=== PATIENT | male | born 1985 | race African-American/Black ===

== ENCOUNTER 2017-09-20 21:30 | Emergency (ER) | payer OTHER ==
[~2017-09-20] VITALS: Ht 177.8 cm; Wt 73.9 kg
[2017-09-20 22:17] LABS: Basophils # (auto) 0.1 uL; Basophils % (auto) 1.6 % (0.0-2.0); Eosinophils # (auto) 0.2 uL; Eosinophils % (auto) 2.8 % (0.0-7.0); Hematocrit 47.1 % (41.0-53.0); Hemoglobin 16.2 g/dL (13.5-17.5); Lymphocytes # (auto) 3.2 uL; Lymphocytes % (auto) 49.6 % (10.0-50.0); Mean Corpuscular Hemoglobin 29.8 pg (28.0-32.0); Mean Corpuscular Hgb Conc. 34.4 g/dL (32.0-36.0); Mean Corpuscular Volume 86.5 fL (80.0-100.0); Mean Platelet Volume 7.5 fL (6.9-10.8); Monocytes # (auto) 0.7 uL; Neutrophils # (auto) 2.2 uL; Nucleated Red Blood Cells % 0.3 %; Platelet Count (auto) 312 10^3/uL (140-450); Red Cell Distribution Width 13.9 % (11.8-14.3); White Blood Cell 6.4 10^3/uL (4.4-10.8)
[2017-09-20 22:32] LABS: Acetaminophen < 2.0 ug/mL (10-30); Salicylate < 1.7 mg/dL (2.8-20.0)
[2017-09-20 22:36] LABS: Albumin 4.2 g/dL (3.4-5.0); Alkaline Phosphatase 72 U/L (45-117); Anion Gap 10 (5-15); Aspartate Aminotransferase 14 U/L (15-37); BUN/Creatinine Ratio 16.3; Bilirubin, Total 1.8 mg/dL (0.2-1.0); Blood Urea Nitrogen 13 mg/dL (7-18); Calcium 9.1 mg/dL (8.5-10.1); Carbon Dioxide 26 mmol/L (21-32); Chloride 101 mmol/L (98-107); GFR African American 142 mL/min; GFR Non-African American 118 mL/min; Glucose 86 mg/dL (74-106); Potassium 3.3 mmol/L (3.5-5.1); Sodium 137 mmol/L (136-145); Total Protein 8.6 g/dL (6.4-8.2)
[2017-09-20] MEDS ORDERED: ONDANSETRON ODT 4 MG TAB PO ONE (22:45)
[2017-09-21 01:18] LABS: Urine Bilirubin Negative (Negative); Urine Blood Negative /uL (Negative); Urine Color Yellow (Yellow); Urine Glucose Normal (Normal); Urine Ketone 1+ (Negative); Urine Mucus FEW (None Seen); Urine Nitrite Negative (Negative); Urine RBC 2 /hpf (0 - 3); Urine Squamous Epithelial Cell FEW /hpf (<5); Urine Urobilinogen Normal (Negative)
[2017-09-21 04:29] VITALS: BP 126/70
== END 2017-09-21 04:31 | disposition home or self-care (01) ==
LOC: EDUNIT# 21:30 → EDBD 21:30 → ER 21:30
DX: F41.9 Anxiety disorder, unspecified (principal); F32.9 Major depressive disorder, single episode, unspecified; F17.200 Nicotine dependence, unspecified, uncomplicated; F12.10 Cannabis abuse, uncomplicated; F15.10 Other stimulant abuse, uncomplicated
CPT/HCPCS: 36415; 80053; 80307; 80320; 80329; 81001; 85025; 99284; Q0162

== ENCOUNTER 2023-08-09 17:45 | Emergency (ER) | payer MEDICAID, OTHER ==
[~2023-08-09] VITALS: Ht 170.2 cm; Wt 54.5 kg
[2023-08-09 19:17] LABS: Basophils # (auto) 0 10 ^3/uL (0-0.2); Basophils % (auto) 0.1 % (0.0-2.0); Eosinophils # (auto) 0 10 ^3/uL (0-0.8); Eosinophils % (auto) 0.1 % (0.0-7.0); Hematocrit 33.6 % (41.0-53.0); Hemoglobin 11.2 g/dL (13.5-17.5); Lymphocytes # (auto) 0.9 10 ^3/uL (0.4-5.4); Lymphocytes % (auto) 18.7 % (10.0-50.0); Mean Corpuscular Hemoglobin 29.3 pg (28.0-32.0); Mean Corpuscular Hgb Conc. 33.4 g/dL (32.0-36.0); Mean Corpuscular Volume 87.7 fL (80.0-100.0); Monocytes # (auto) 0.4 10 ^3/uL (0-1.3); Monocytes % (auto) 8.8 % (0.0-12.0); Neutrophils # (auto) 3.7 10 ^3/uL (1.6-8.6); Neutrophils % (auto) 72.3 % (37.0-80.0); Nucleated Red Blood Cells % 0.1 %; Red Blood Cells 3.83 10^6/uL (4.5-5.90); Red Cell Distribution Width 14.2 % (11.8-14.3); White Blood Cell 5.1 10^3/uL (4.4-10.8)
[2023-08-09 19:45] LABS: Alanine Aminotransferase 30 U/L (7-40); Albumin 3.9 g/dL (3.2-4.8); Alkaline Phosphatase 91 U/L (46-116); Anion Gap 5 (5-15); Aspartate Aminotransferase 31 U/L (13-40); BUN/Creatinine Ratio 32.3 (10.0-20.0); Bilirubin, Total 1.2 mg/dL (0.2-1.0); Blood Urea Nitrogen 20 mg/dL (9-23); Calcium 9.2 mg/dL (8.7-10.4); Carbon Dioxide 34 mmol/L (20-30); Chloride 99 mmol/L (98-107); Glucose 98 mg/dL (74-106); Potassium 3.6 mmol/L (3.5-5.1); Sodium 138 mmol/L (136-145); Total Protein 7.1 g/dL (5.7-8.2)
[2023-08-09 22:55] LABS: Magnesium 2.1 mg/dL (1.6-2.6)
[2023-08-10] MEDS ORDERED: PANTOPRAZOLE 80 MG in SODIUM CHL 0.9% 100 ML IV ONE ×2
[2023-08-10] MEDS ORDERED: PANTOPRAZOLE 40mg/50ML NS AE 50 ML IV ONE
[2023-08-10 01:29] LABS: INR 1.11 (0.9-1.15); Partial Thromboplastin Time 31.5 SEC (24.5-34.5); Prothrombin Time 11.6 sec (9.3-11.8)
[2023-08-10] MEDS ORDERED: IOHEXOL 350 MG/ML 100ML IJ ONE (03:20)
[2023-08-10 03:55] VITALS: TEMP 97.4
[2023-08-10] MEDS ORDERED: PANTOPRAZOLE 40 MG/10 ML VIAL INJ IV ONE (05:11)
[2023-08-10] MEDS ORDERED: LACTATED RINGER'S 2,000 ML IV ONE (05:30)
[2023-08-10] MEDS ORDERED: metroNIDAZOLE 500MG/100ML 100 ML IV ONE (05:30)
[2023-08-10] MEDS ORDERED: cefTRIAXone 1GM/50ML D5W 50 ML IV ONE (05:30)
[2023-08-10] MEDS ORDERED: LACTATED RINGER'S 1,000 ML IV ONE ×2 (05:30)
[2023-08-10] MEDS ORDERED: LACTULOSE 10g/15ml SOLN 473ML PR ONE (05:30)
[2023-08-10 08:35] VITALS: PULSE 78; O2SAT 97
[2023-08-10] MEDS ORDERED: GOLYTELY 4L KIT PO ONE (13:45)
[2023-08-10] MEDS ORDERED: SENN-105 PO (14:20)
[2023-08-10] MEDS ORDERED: LACT10SO3 PO (14:20)
[2023-08-10] MEDS ORDERED: CIPR500T4 PO (14:21)
[2023-08-10] MEDS ORDERED: BACL20TA PO (14:24)
[2023-08-10] MEDS ORDERED: PANT40TA2 PO (14:25)
[2023-08-10 18:01] VITALS: BP 118/69; PULSE 61; RESP 16; O2SAT 100
== END 2023-08-10 19:28 | disposition home or self-care (01) ==
LOC: ER 17:45 → EDBD 17:45 → ER 08-10 19:28
DX: S72.112A Displaced fracture of greater trochanter of left femur, initial encounter for closed fracture (principal); K59.00 Constipation, unspecified; R53.1 Weakness; E86.0 Dehydration; R11.10 Vomiting, unspecified; R40.4 Transient alteration of awareness; R64 Cachexia; F41.9 Anxiety disorder, unspecified; F32.9 Major depressive disorder, single episode, unspecified; Z68.1 Body mass index [BMI] 19.9 or less, adult; Z86.73 Personal history of transient ischemic attack (TIA), and cerebral infarction without residual deficits; Z98.890 Other specified postprocedural states; X58.XXXA Exposure to other specified factors, initial encounter; Y93.89 Activity, other specified; Y92.89 Other specified places as the place of occurrence of the external cause; Y99.8 Other external cause status
CPT/HCPCS: 36415; 71045; 73502; 74177; 80053; 83605; 83690; 83735; 84484; 85025; 85610; 85730; 86850; 86900; 86901; 96361; 96365; 96366; 96367; 96368; 99285; C9113; J0696; J3490; Q9967

== ENCOUNTER 2024-05-08 20:14 | Inpatient (IN) | payer MEDICAID ==
[~2024-05-08] VITALS: Ht 177.8 cm; Wt 55.0 kg
[~2024-05-08 20:14] MED LIST: BACL20TA PO; CIPR500T4 PO; LACT10SO3 PO; PANT40TA2 PO; SENN-105 PO
[2024-05-08] MEDS: LORazepam 2MG/ML-1ML VIAL ONE (20:51)
[2024-05-08] MEDS: LORazepam 2MG/ML-1ML VIAL IV ONE (21:06)
[2024-05-08] MEDS: levoFLOXacin 500MG 100 ML IV ONE (21:07)
[2024-05-08] MEDS: SODIUM CHLORIDE 0.9% 1,000 ML IV ONE (21:12)
[2024-05-08 21:28] VITALS: PULSE 84; O2SAT 100
[2024-05-08 21:39] LABS: Basophils # (auto) 0 10 ^3/uL (0-0.2); Basophils % (auto) 0.9 % (0.0-2.0); Eosinophils # (auto) 0.1 10 ^3/uL (0-0.8); Eosinophils % (auto) 2.7 % (0.0-7.0); Hematocrit 35.3 % (41.0-53.0); Hemoglobin 11.8 g/dL (13.5-17.5); Lymphocytes # (auto) 1.7 10 ^3/uL (0.4-5.4); Lymphocytes % (auto) 34.4 % (10.0-50.0); Mean Corpuscular Hemoglobin 28.1 pg (28.0-32.0); Mean Corpuscular Hgb Conc. 33.4 g/dL (32.0-36.0); Mean Corpuscular Volume 84.2 fL (80.0-100.0); Monocytes # (auto) 0.4 10 ^3/uL (0-1.3); Monocytes % (auto) 8.3 % (0.0-12.0); Neutrophils # (auto) 2.6 10 ^3/uL (1.6-8.6); Neutrophils % (auto) 53.7 % (37.0-80.0); Nucleated Red Blood Cells % 0.1 %; White Blood Cell 4.9 10^3/uL (4.4-10.8)
[2024-05-08 21:54] LABS: Alanine Aminotransferase 19 U/L (7-40); Albumin 3.9 g/dL (3.2-4.8); Alkaline Phosphatase 70 U/L (46-116); Anion Gap 5 (5-15); Aspartate Aminotransferase 15 U/L (13-40); BUN/Creatinine Ratio 11.6 (10.0-20.0); Bilirubin, Total 0.5 mg/dL (0.2-1.0); Blood Urea Nitrogen 8 mg/dL (9-23); Calcium 9.4 mg/dL (8.7-10.4); Carbon Dioxide 29 mmol/L (20-30); Chloride 105 mmol/L (98-107); Glucose 96 mg/dL (74-106); Potassium 3.8 mmol/L (3.5-5.1); Sodium 139 mmol/L (136-145); Total Protein 7.3 g/dL (5.7-8.2)
[2024-05-08 22:00] LABS: INR 1.13 (0.9-1.15); Partial Thromboplastin Time 25.6 SEC (24.5-34.5); Prothrombin Time 11.9 sec (9.3-11.8)
[2024-05-08 23:20] LABS: Urine Amorphous Crystal FEW /hpf (None Seen); Urine Bacteria FEW /hpf (None Seen); Urine Blood Negative /uL (Negative); Urine Clarity Clear (Clear); Urine Color Light-Yellow (Yellow); Urine Protein, UAD Negative (Negative); Urine Specific Gravity 1.015 (1.001-1.035); Urine Urobilinogen Normal (Negative); Urine WBC 47 /hpf (0 - 3)
[2024-05-08] MEDS ORDERED: ONDANSETRON HCL 4 MG/2 ML VIAL IV PRN (23:30)
[2024-05-09 04:53] LABS: Anion Gap 4 (5-15); Carbon Dioxide 29 mmol/L (20-30); Chloride 107 mmol/L (98-107); Potassium 3.8 mmol/L (3.5-5.1); Sodium 140 mmol/L (136-145)
[2024-05-09 04:54] LABS: Calcium 9.6 mg/dL (8.7-10.4)
[2024-05-09 04:59] LABS: Blood Urea Nitrogen 6 mg/dL (9-23); Glucose 76 mg/dL (74-106)
[2024-05-09 05:11] LABS: Basophils # (auto) 0 10 ^3/uL (0-0.2); Basophils % (auto) 0.6 % (0.0-2.0); Eosinophils # (auto) 0.3 10 ^3/uL (0-0.8); Eosinophils % (auto) 3.3 % (0.0-7.0); Hematocrit 36.5 % (41.0-53.0); Hemoglobin 12.1 g/dL (13.5-17.5); Lymphocytes # (auto) 2.2 10 ^3/uL (0.4-5.4); Lymphocytes % (auto) 28.5 % (10.0-50.0); Mean Corpuscular Hemoglobin 28.4 pg (28.0-32.0); Mean Corpuscular Hgb Conc. 33.2 g/dL (32.0-36.0); Mean Corpuscular Volume 85.7 fL (80.0-100.0); Monocytes # (auto) 0.5 10 ^3/uL (0-1.3); Neutrophils # (auto) 4.7 10 ^3/uL (1.6-8.6); Neutrophils % (auto) 60.6 % (37.0-80.0); Nucleated Red Blood Cells % 0.1 %; Red Blood Cells 4.27 10^6/uL (4.5-5.90); Red Cell Distribution Width 15.2 % (11.8-14.3); White Blood Cell 7.8 10^3/uL (4.4-10.8)
[2024-05-09 07:20] VITALS: PULSE 60; RESP 16; O2SAT 100
[2024-05-09] MEDS: ASPirin 81 mg TAB PO SCH (10:00)
[2024-05-09] MEDS: LORazepam 2MG/ML-1ML VIAL IV PRN (10:20)
[2024-05-09] MEDS: levETIRAcetam 1000 mg/100ml 100 ML IV SCH (10:27)
[2024-05-09] MEDS: ENOXAPARIN SOD 40 MG/0.4 ML SYRINGE SC SCH (10:55)
[2024-05-09] MEDS: cefTRIAXone 1GM/50ML D5W 50 ML IV SCH (10:56)
[2024-05-09 18:09] LABS: Folate (Folic Acid) > 24.00 ng/mL (>5.38)
[2024-05-09 19:30] VITALS: PULSE 82; O2SAT 99
[2024-05-09] MEDS: ATORVASTATIN 20 MG TAB PO SCH (22:29)
[2024-05-10] MEDS: ACETAMINOPHEN 325 MG TAB PO PRN (06:46)
[2024-05-10 07:37] LABS: Chloride 102 mmol/L (98-107); Potassium 4.4 mmol/L (3.5-5.1); Sodium 136 mmol/L (136-145)
[2024-05-10 07:38] LABS: Anion Gap 5 (5-15); Calcium 9.3 mg/dL (8.7-10.4); Carbon Dioxide 29 mmol/L (20-30)
[2024-05-10 07:43] LABS: BUN/Creatinine Ratio 16.7 (10.0-20.0); Blood Urea Nitrogen 10 mg/dL (9-23); Glucose 98 mg/dL (74-106); Magnesium 1.6 mg/dL (1.6-2.6)
[2024-05-10 08:15] LABS: Basophils # (auto) 0 10 ^3/uL (0-0.2); Basophils % (auto) 0.5 % (0.0-2.0); Eosinophils # (auto) 0.2 10 ^3/uL (0-0.8); Eosinophils % (auto) 4.3 % (0.0-7.0); Hematocrit 34.8 % (41.0-53.0); Hemoglobin 11.5 g/dL (13.5-17.5); Lymphocytes # (auto) 1.6 10 ^3/uL (0.4-5.4); Lymphocytes % (auto) 28.8 % (10.0-50.0); Mean Corpuscular Hgb Conc. 33.1 g/dL (32.0-36.0); Mean Corpuscular Volume 84.7 fL (80.0-100.0); Monocytes # (auto) 0.4 10 ^3/uL (0-1.3); Monocytes % (auto) 6.7 % (0.0-12.0); Neutrophils # (auto) 3.4 10 ^3/uL (1.6-8.6); Neutrophils % (auto) 59.7 % (37.0-80.0); Nucleated Red Blood Cells % 0.1 %; Red Blood Cells 4.11 10^6/uL (4.5-5.90); Red Cell Distribution Width 15.1 % (11.8-14.3); White Blood Cell 5.6 10^3/uL (4.4-10.8)
[2024-05-10 09:32] VITALS: PULSE 72; RESP 16; O2SAT 96
[2024-05-10] MEDS: levETIRAcetam 500 MG/5ML ORAL SOLN UD GT SCH (13:58)
[2024-05-10 20:00] VITALS: PULSE 83; RESP 12; O2SAT 100
[2024-05-10] MEDS: LORazepam 2MG/ML-1ML VIAL IV ONE (23:38)
[2024-05-11 06:29] LABS: Basophils # (auto) 0 10 ^3/uL (0-0.2); Basophils % (auto) 0.9 % (0.0-2.0); Eosinophils # (auto) 0.2 10 ^3/uL (0-0.8); Eosinophils % (auto) 3.4 % (0.0-7.0); Hematocrit 36.4 % (41.0-53.0); Hemoglobin 12.2 g/dL (13.5-17.5); Lymphocytes # (auto) 1.7 10 ^3/uL (0.4-5.4); Lymphocytes % (auto) 34.9 % (10.0-50.0); Mean Corpuscular Hemoglobin 28.1 pg (28.0-32.0); Mean Corpuscular Hgb Conc. 33.4 g/dL (32.0-36.0); Monocytes # (auto) 0.4 10 ^3/uL (0-1.3); Monocytes % (auto) 8.7 % (0.0-12.0); Neutrophils # (auto) 2.5 10 ^3/uL (1.6-8.6); Neutrophils % (auto) 52.1 % (37.0-80.0); Nucleated Red Blood Cells % 0.1 %; Red Blood Cells 4.33 10^6/uL (4.5-5.90); Red Cell Distribution Width 14.9 % (11.8-14.3); White Blood Cell 4.8 10^3/uL (4.4-10.8)
[2024-05-11 06:33] LABS: Alanine Aminotransferase 17 U/L (7-40); Alkaline Phosphatase 71 U/L (46-116); Anion Gap 6 (5-15); Aspartate Aminotransferase 23 U/L (13-40); BUN/Creatinine Ratio 10.3 (10.0-20.0); Bilirubin, Total 0.5 mg/dL (0.2-1.0); Blood Urea Nitrogen 6 mg/dL (9-23); Calcium 9.6 mg/dL (8.7-10.4); Carbon Dioxide 31 mmol/L (20-30); Chloride 103 mmol/L (98-107); Glucose 89 mg/dL (74-106); Potassium 3.7 mmol/L (3.5-5.1); Sodium 140 mmol/L (136-145)
[2024-05-11 06:34] LABS: Total Protein 7.6 g/dL (5.7-8.2)
[2024-05-11 08:24] VITALS: PULSE 76; RESP 12; O2SAT 95
[2024-05-11] MEDS ORDERED: ATOR20TA50 PO (13:19)
[2024-05-11] MEDS ORDERED: ASPI-325 PO (13:19)
[2024-05-11] MEDS ORDERED: LEVE750T16 PO (13:22)
[2024-05-11 13:31] VITALS: BP 119/78; PULSE 83; RESP 18; TEMP 98.2; O2SAT 100
== END 2024-05-11 18:00 | disposition home or self-care (01) | DRG 53 ==
LOC: EDBD 20:14 → ER 20:14 → OVERFLOW 23:24 → UNDODEPER 05-11 13:22
PROVIDERS: ADMIT Internal Medicine Pulmonary Disease; ATTEND Anesthesiology
DX: G40.401 Other generalized epilepsy and epileptic syndromes, not intractable, with status epilepticus (principal); R53.2 Functional quadriplegia; E86.0 Dehydration; N39.0 Urinary tract infection, site not specified; F20.9 Schizophrenia, unspecified; F32.A Depression, unspecified; F41.9 Anxiety disorder, unspecified; Z66 Do not resuscitate; J06.9 Acute upper respiratory infection, unspecified; F09 Unspecified mental disorder due to known physiological condition; Z86.73 Personal history of transient ischemic attack (TIA), and cerebral infarction without residual deficits; Z74.01 Bed confinement status; Z79.82 Long term (current) use of aspirin; Z79.899 Other long term (current) drug therapy
CPT/HCPCS: 36415; 70450; 71045; 80048; 80053; 81001; 82607; 82746; 83735; 83880; 84443; 84484; 85025; 85379; 85610; 85730; 93306; 93886; 96365; 96375; 99291; G0378; J1956